=== PATIENT | male | born 1970 | race Caucasian/White ===

== ENCOUNTER 2018-01-14 19:15 | Emergency (ER) | payer BC, SELFPAY ==
[2018-01-14 19:16] VITALS: BP 150/118; PULSE 81; RESP 17; TEMP 36.8; O2SAT 94; BMI 30.4
[2018-01-14] MEDS: Diphth,Pertuss(Acell),Tet Vac 0.5 ML Vial IM (20:08)
--- NOTE | 2018-01-14 20:09 | ED.VISSUMM ---
- ER Visit Summary Date of Service: 01/14/18 Chief Complaint: Hand laceration History of Present Illness: The patient is a 47 M who incised his palm of his right hand at the base of the long finger today while on a metal roof that was rested in the [place]. He is unsure of his last tetanus. Injury happened about 12 hours prior to arrival. Physical Examination: Afebrile vital signs stable There is a gaping 2.5 cm full-thickness laceration over the palm of the right hand at the base of the long finger. Tendon function of the flexor digitorum profundus and superficialis were intact. Neurovascular intact distally. Emergency Department Course and Treatment: Tetanus was updated. Wound was locally anesthetized using 1% lidocaine and then washed with Shur-Clens and explored. It was closed using a total of 3 4-0 interrupted Ethilon sutures. Stitches will need to be removed in 10 days return if worsening or concerns Impression: 1. 2.5 cm right palm laceration with repair 2. Tetanus update This note was generated with [employer] dictation software. It may contain incorrect words, spelling, and punctuation that were not noted in review of the chart prior to signing ED Disposition - Plan for ED Patient: Disposition: Home or Assisted Living Chief Complaint: Laceration Instructions: ED Laceration Hand Referrals: Gregory Bowens MD [STAFF PHYSICIAN] - 10 Day for suture removal
[2018-01-14 20:32] VITALS: RESP 18
== END 2018-01-14 20:33 | disposition home or self-care (01) ==
PROVIDERS: Emergency Provider Emergency Medicine
DX: S61.411A Laceration without foreign body of right hand, initial encounter (principal); Z23 Encounter for immunization; W26.9XXA Contact with unspecified sharp object(s), initial encounter; Y93.9 Activity, unspecified; Y92.9 Unspecified place or not applicable
CPT/HCPCS: 12001; 90715; 99284

== ENCOUNTER → 2022-11-07 | Outpatient (CLI) | payer OTHER, SELFPAY ==
[2022-11-07 17:30] LABS: Absolute Lymphocyte Count 1.65 X10^3/uL (0.83-4.51); Absolute Neutrophil Count 3.1 X10^3/uL (2.0-7.7); Basophil# 0.03 X10^3/uL; Basophil% 0.5 % (0-1); Eosinophil# 0.11 X10^3/uL; Hematocrit 40.9 % (40-54); Hemoglobin 14.2 g/dL (13.0-16.5); Lymphocyte # 1.65 X10^3/ul (0.83-4.51); Lymphocyte % 29.9 % (19-41); Mean Corp Hgb Conc 34.7 g/dL (32-36); Mean Corpuscular Volume 83.6 fL (80-94); Mean Platelet Vol. 9.5 fl (6.2-12.0); Monocyte# 0.59 X10^3/uL; Monocyte% 10.7 % (0-10); NRBC Flagged by Analyzer 0 % (0-5); Neutrophil # 3.11 X10^3/uL (2.7-7.7); Neutrophil % 56.4 % (47-70); Platelet Count 223 K/mm3 (150-450); RBC Distribution Width CV 12.2 % (11.6-14.6); Red Blood Count 4.89 M/mm3 (4.6-6.2); White Blood Count 5.5 K/mm3 (4.4-11.0)
[2022-11-07 18:09] LABS: Vitamin B12 493 pg/mL (211-911); Vitamin D,25 Hydroxy 19.6 ng/mL
[2022-11-07 18:13] LABS: AST(SGOT) 17 U/L (15-37); Alanine Aminotransfer ALT/SGPT 33 U/L (16-61); Albumin, Serum 3.8 g/dL (3.2-5.0); Alkaline Phosphatase 93 U/L (45-117); Anion Gap 10 (5-15); BUN 19 mg/dL (7-18); BUN/Creat Ratio 19.1 RATIO (10-20); Chloride 106 mmol/L (98-107); Cholesterol 236 mg/dL (200); Creatinine, Serum 0.99 mg/dL (0.70-1.30); EST Glomerular Filtration Rate 84 mL/min (>60); Est Glom Filt Rate - Afr Amer 102 mL/min (>60); Glucose 87 mg/dL (74-106); High Density Lipoprotein 51 mg/dL; Potassium 3.3 mmol/L (3.5-5.1); Protein, Total 7.8 g/dL (6.4-8.2); Sodium Level 141 mmol/L (136-145); T4 Free Direct 1.03 ng/dL (0.76-1.46); Thyroid Stim Hormone (TSH) 2.76 uIU/mL (0.358-3.74); Triglycerides 122 mg/dL; Very Low Density Lipoprotein 24 mg/dL (5-40)
== END | disposition home or self-care (01) ==
LOC: MFPLAB 15:24
PROVIDERS: PCP Family Medicine; Referring Provider Family Medicine; Visit Provider Family Medicine
DX: I10 Essential (primary) hypertension (principal); R53.83 Other fatigue
CPT/HCPCS: 36415; 80053; 80061; 82306; 82607; 84439; 84443; 85025

== ENCOUNTER → 2023-01-24 | Outpatient (CLI) | payer OTHER, SELFPAY ==
--- NOTE | 2023-01-24 07:43 | ECHOD_ITS ---
Reason For Study: HTN Procedure This was a 2D Doppler, Color Flow transthoracic echocardiogram. Exam performed in department. Left Ventricle Normal LV size. Left ventricular systolic function is normal. The estimated ejection fraction is 55 %. No regional wall motion abnormalities noted. Right Ventricle Normal RV size. Normal systolic function. Atria Normal left atrium. Normal right atrium. Mitral Valve Normal mitral valve. Tricuspid Valve Normal tricuspid valve. Aortic Valve Normal aortic valve. Pulmonic Valve Normal pulmonic valve. Great Vessels Normal aortic root. The pulmonary artery is normal size. Normal inferior vena cava. Pericardium/Pleural No pericardial effusion. MMode/2D Measurements & Calculations LVIDd: 5.1 cm IVSd: 0.90 cm Ao root diam: 3.3 cm LVIDs: 3.3 cm LVPWd: 0.89 cm FS: 35.4 % LAV(MOD-bp): 23.9 ml LVAd ap4: 29.2 cm2 SV(MOD-sp4): 54.0 ml LAV(MOD-bp) Indexed: 11.8 ml/m2 LVLd ap4: 8.1 cm LAV(MOD-sp2): 22.3 ml EDV(MOD-sp4): 87.0 ml LAV(MOD-sp4): 26.7 ml EDV(sp4-el): 89.6 ml LVAs ap4: 15.7 cm2 LVLs ap4: 6.3 cm ESV(MOD-sp4): 33.0 ml ESV(sp4-el): 33.1 ml EF(MOD-sp4): 62.1 % EF(sp4-el): 63.1 % SV(sp4-el): 56.5 ml LA A4 area: 11.2 cm2 LA dimension(2D): 3.9 cm RA A4 area: 12.5 cm2 Time Measurements MV dec time: 0.22 sec Doppler Measurements & Calculations MV E max giovany: 67.4 cm/sec Lat Peak E' Giovany: 8.8 cm/sec Med Peak E' Giovany: 5.6 cm/sec MV A max giovany: 62.7 cm/sec E/E' lat: 7.7 E/E' med: 12.1 MV E/A: 1.1 MV V2 max: 62.0 cm/sec Ao V2 max: 98.8 cm/sec MV max P.5 mmHg MV dec slope: 311.6 cm/sec2 Ao max P.9 mmHg MV V2 mean: 39.1 cm/sec Ao V2 mean: 77.5 cm/sec MV mean P.70 mmHg Ao mean P.6 mmHg MV V2 VTI: 25.3 cm Ao V2 VTI: 25.3 cm AV (velocity ratio): 0.77 LV V1 max: 82.6 cm/sec PA V2 max: 142.1 cm/sec LV V1 max P.7 mmHg PA V2 mean: 99.1 cm/sec LV V1 mean P.5 mmHg LV V1 mean: 56.8 cm/sec LV V1 VTI: 19.5 cm ECHO/Echo Complete Interpretation Summary Normal LV size. Left ventricular systolic function is normal. The estimated ejection fraction is 55 %. Structurally normal valves. Ordering Physician: Ted Singer Referring Physician: Ted Singer Performed By: Melonie Barnard RCS
== END | disposition home or self-care (01) ==
LOC: CVS 07:41
PROVIDERS: PCP Family Medicine; Referring Provider Internal Medicine Cardiovascular Disease; Visit Provider Internal Medicine Cardiovascular Disease
DX: I10 Essential (primary) hypertension (principal)
CPT/HCPCS: 93306